=== PATIENT | male | born 1975 | race Two or more races ===

== ENCOUNTER 2019-12-02 17:45 | Emergency (ER) | payer BC ==
[~2019-12-02] VITALS: Ht 167.6 cm; Wt 65.8 kg
[2019-12-02] MEDS ORDERED: KETOROLAC TROMETH 60MG/2ML VIAL IM ONE (19:15)
[2019-12-02 19:45] VITALS: BP 128/72
== END 2019-12-02 20:19 | disposition home or self-care (01) ==
LOC: ER 17:45
DX: M54.16 Radiculopathy, lumbar region (principal); M46.86 Other specified inflammatory spondylopathies, lumbar region; M25.462 Effusion, left knee; G89.29 Other chronic pain; M62.830 Muscle spasm of back
CPT/HCPCS: 96372; 99283; J1885